=== PATIENT | male | born 1945 | race Caucasian/White ===

== ENCOUNTER 2018-06-15 07:05 | Outpatient (CLI) | payer MEDICARE, OTHER ==
[~2018-06-15] VITALS: Ht 177.8 cm; Wt 98.4 kg
[~2018-06-15 07:05] MED LIST: FINA5TAB6 PO; LISI10TA2 PO; MTF500T PO; PSYL425P3 PO
[2018-06-15] MEDS ORDERED: FINA5TAB6 PO (14:04)
[2018-06-15] MEDS ORDERED: ASPI-586 PO (14:04)
[2018-06-15] MEDS ORDERED: LOSA25TA41 PO (14:04)
[2018-06-15] MEDS ORDERED: PSYL575P4 PO (14:04)
[2018-06-15] MEDS ORDERED: CETI10TA17 PO (14:04)
[2018-06-15] MEDS ORDERED: FLUT9.9S NS (14:04)
[2018-06-15] MEDS ORDERED: TAMS0.4C98 PO (14:04)
[2018-06-15] MEDS ORDERED: METF-397 PO (14:04)
== END 2018-06-15 14:05 | disposition home or self-care (01) ==
LOC: PREOP 07:05
PROVIDERS: ATTEND Internal Medicine
DX: Z01.818 Encounter for other preprocedural examination (principal)

== ENCOUNTER 2018-06-18 07:06 | Day surgery (SDC) | payer MEDICARE, OTHER ==
--- NOTE | 2018-06-15 09:35 | HISTORY AND PHYSICAL ---
DATE OF SERVICE: 06/18/2018 COLONOSCOPY SUMMARY HISTORY OF PRESENT ILLNESS: The patient is a 72-year-old white male whom I last performed a colonoscopy on 5 years ago. At that time, he had 2 tubular adenomas that were removed; one from the proximal transverse colon, the other one from the mid transverse colon. He reports that there have been no significant health changes over the past 5 years. He has moved back to the area and would like to reestablish under my primary care as well. He currently lives in [place]. He is seen to be of higher than average risk as his mother was diagnosed with colon cancer at the age of 49. She survived this and of natural causes at the age of 91. Further family history, father had diverticulitis with obstruction and succumbed to prostate cancer at the age of 74. PAST MEDICAL HISTORY: Significant for long-standing hypertension and benign prostatic hyperplasia as well as recent onset and diagnosed with type 2 diabetes mellitus. He has a history of seasonal allergies. MEDICATIONS ON ADMISSION: Include metformin 500 mg b.i.d., losartan 25 mg daily, finasteride 5 mg daily, tamsulosin 0.4 mg daily, cetirizine 10 mg daily, Flovent nasal spray 2 puffs both sides daily, Metamucil daily and 81 mg aspirin daily. PAST SURGICAL HISTORY: He reports no significant surgeries. SOCIAL HISTORY: He is a retired respiratory therapist with a 15 to 49-cobw-cykq smoking history, but quit 30 years ago. He reports no significant alcohol intake. REVIEW OF SYSTEMS: CONSTITUTIONAL: He has had no weight change, night sweats, chills or fever. CARDIOVASCULAR: He denies chest pain, dyspnea on exertion, palpitations, syncope or presyncope. He has had no orthopnea, PND or pedal edema. PULMONARY: He has had no cough or shortness of breath. GASTROINTESTINAL: Reveals no abdominal pain, bowel habit change, bright red blood per rectum or melena. PHYSICAL EXAMINATION: GENERAL: Reveals a well-appearing white male, appears to be in no acute distress. HEENT: Unremarkable. He is a Mallampati class 3 oropharyngeal configuration. No erythema or exudate is noted. Ear canals are clear with normal TMs. NECK: Revealed no JVD, adenopathy or bruits. CHEST: Clear to auscultation. CARDIOVASCULAR: Reveals a regular rate and rhythm without murmur, S3 or S4. ABDOMEN: Soft, supple without mass, organomegaly or tenderness. RECTAL: Examination was deferred at the time of the procedure. EXTREMITIES: Reveal no cyanosis, clubbing or edema. SKIN: Evaluation revealed no suspicious nevi. ASSESSMENT AND PLAN: 1. Due to the past history of colon polyps and family history for colon cancer, the next case of his mother being diagnosed in her late 40s, he is set up for a surveillance colonoscopy. Prep instructions were given and questions were answered. 2. Hypertension. Under good control. 3. Type 2 diabetes mellitus. He reports it has been under good control with A1c is less than 7. We will have him return for a routine followup in 6 months with a BMP, CBC and A1c. [facility] 1 to 2 months and [facility], which were unremarkable with a glycosylated hemoglobin 6.1%. Job ID: [id number] DocumentID: [id number] Dictated Date: 06/14/2018 16:44:34 Textile Chemist Date: 06/14/2018 17:22:44 Dictated By: ALYCE BLANTON MD
[~2018-06-18] VITALS: Ht 177.8 cm; Wt 98.4 kg
[~2018-06-18 07:06] MED LIST changes: +ASPI-586 PO; +CETI10TA17 PO; +FLUT9.9S NS; +LOSA25TA41 PO; +METF-397 PO; +PSYL575P4 PO; +TAMS0.4C98 PO
--- OUTSIDE RECORDS SUMMARY | 2018-06-18 07:13 | XMS REPORT | Continuity of Care Document ---
Author Organization Unknown Address Unknown Allergies Active Description Code Type Severity Reaction Onset Reported/Identified Relationship to Patient Clinical Status Yes meperidine [id number] Drug Allergy Unknown N/A 08/05/2005 Yes atorvastatin [id number] Drug Allergy Unknown muscle pain 06/15/2018 Yes lisinopril [id number] Drug Allergy Unknown N/A 06/15/2018 Medications There is no data. Problems Date Dx Coded Attending Type Code Diagnosis Diagnosed By 06/15/2018 ALYCE BLANTON MD Ot Z01.818 ENCOUNTER FOR OTHER PREPROCEDURAL EXAMIN 06/16/2018 ALYCE BLANTON MD Ot Z01.818 ENCOUNTER FOR OTHER PREPROCEDURAL EXAMIN 06/16/2018 ALYCE BLANTON MD Ot V72.84 EXAM PRE-OPERATIVE NOS 06/16/2018 ALYCE BLANTON MD Ot 211.3 BENIGN NEOPLASM LG BOWEL 06/16/2018 ALYCE BLANTON MD Ot 455.0 INT HEMORRHOID W/O COMPL 06/16/2018 ALYCE BLANTON MD Ot 562.10 DIVERTICULOSIS COLON (W/O MENT OF HEMORR 06/16/2018 ALYCE BLANTON MD Ot 600.00 HYPERTROPHY (BENIGN) OF PROSTATE W/O URI 06/16/2018 ALYCE BLANTON MD Ot V16.0 FAMILY HX-GI MALIGNANCY 06/16/2018 ALYCE BLANTON MD Ot V76.51 SCREEN MAL NEOP-COLON Procedures There is no data. Results There is no data. Encounters ACCT No. Visit Date/Time Discharge Status Pt. Type Provider Facility Loc./Unit Complaint [id number] 06/15/2018 07:05:00 06/15/2018 14:05:00 DIS Outpatient ALYCE BLANTON MD [facility] PREOP COLONOSCOPY [id number] 06/10/2013 06:44:00 06/10/2013 23:59:59 CLS Outpatient ALYCE BLANTON MD [facility] SDC SCREENING [id number] 06/09/2013 07:36:00 06/09/2013 23:59:59 CLS Outpatient ALYCE BLANTON MD [facility] PREOP SCREENING [id number] 06/18/2018 07:06:00 ACT Outpatient ALYCE BLANTON MD [facility] ENDO HX COLON POLYPS
[2018-06-18] MEDS ORDERED: D5 LR IV SOLUTION 1,000 ML IV ONE (07:14)
[2018-06-18] MEDS ORDERED: D5 LR IV SOLUTION 1,000 ML IV STA (07:23)
[2018-06-18] MEDS ORDERED: LIDOCAINE JELLY 2% 6 ML SYRINGE MM PRN (07:30)
[2018-06-18] MEDS ORDERED: fentaNYL INJECTION 100 MCG/2 ML AMP IVP ONE (07:30)
[2018-06-18] MEDS ORDERED: MIDAZOLAM 2 MG/2 ML (VERSED) VIAL IVP ONE (07:30)
[2018-06-18] MEDS ORDERED: fentaNYL INJECTION 100 MCG/2 ML AMP ONE (07:31)
[2018-06-18] MEDS ORDERED: MIDAZOLAM 2 MG/2 ML (VERSED) VIAL ONE (07:31)
[2018-06-18 07:32] VITALS: BP 146/86
[2018-06-18] MEDS ORDERED: LIDOCAINE JELLY 2% 6 ML SYRINGE ONE (07:32)
[2018-06-18 08:35] VITALS: BP 136/59
--- NOTE | 2018-06-18 09:32 | Pre-Op Note & Conscious Sedat ---
Pre-Operative Progress Note H&P Reviewed The H&P was reviewed, patient examined and no changes noted. Date H&P Reviewed: Jun 18, 2018 Time H&P Reviewed: 07:30 Conscious Sedation Pre-Proced ASA Score 2 For ASA 3 and 4: Consider anesthesia and medical clearance. Also, for patients with a history of failed moderate sedation consider anesthesia. Airway Lungs Heart ASA score ASA 1: a normal healthy patient ASA 2: a patient with a mild systemic disease (mid diabetes, controlled hypertension, obesity ASA 3: a patient with a severe systemic disease that limits activity (angina , COPD, prior Myocardial infarction) ASA 4: a patient with an incapacitating disease that is a constant threat to life (CHF, renal failure) ASA 5: a moribund patient not expected to survive 24 hrs. (ruptured aneurysm) ASA 6: a declared brain- patient whose organs are being harvested. For emergent operations, add the letter E after the classification Mallampati Classification Grade 3 Sedation Plan Analgesia, Amnesia, Plan communicated to team members, Discussed options with patient/fam, Discussed risks with patient/fam The patient is an appropriate candidate to undergo the planned procedure, sedation, and anesthesia. The patient immediately re-assessed prior to indication. ALYCE BLANTON MD Jun 18, 2018 09:32
[2018-06-18] MEDS ORDERED: ASPI-586 PO (09:34)
[2018-06-18 09:35] VITALS: BP 134/66
[2018-06-18 09:50] VITALS: BP 134/66
--- NOTE | 2018-06-18 11:48 | OPERATIVE REPORT ---
DATE OF SERVICE: 06/18/2018 COLONOSCOPY SUMMARY INDICATION FOR THE PROCEDURE: History of colon polyps. Family history for colon cancer in one grandparent. The patient was placed in the left lateral decubitus position. Prior to undergoing colonoscopy, digital rectal evaluation was performed. Anal sphincter tone was normal and the perianal reflex was intact. Prostate is mildly enlarged with no evidence for nodularity with uniform consistency to digital inspection. No tenderness was reported. The colonoscope was then inserted into the rectum under direct visualization and advanced to the cecum. The cecum was identified by identification of the ileocecal valve and cecal strap. Photographic documentation was obtained. Careful inspection was made as the colonoscope was withdrawn. FINDINGS: There was no evidence for internal or external hemorrhoids and the rectum, sigmoid colon, descending colon and splenic flexure were unremarkable. Present in the proximal transverse colon was a diminutive 3 mm sessile polyp. It was photographed and biopsied and ablated with no subsequent blood loss. The hepatic flexure, ascending colon and cecum were unremarkable. ASSESSMENT: One diminutive polyp was removed from the proximal transverse colon via hot forceps with an otherwise normal colonoscopy to the cecum. Considering family history will be abdicating repeat screening colonoscopy in 5 years. Job ID: [id number] DocumentID: [id number] Dictated Date: 06/18/2018 10:21:13 Internet Marketer Date: 06/18/2018 11:48:07 Dictated By: ALYCE BLANTON MD
== END 2018-06-18 09:50 | disposition home or self-care (01) ==
LOC: ENDO 07:06
PROVIDERS: ATTEND Internal Medicine
DX: Z12.11 Encounter for screening for malignant neoplasm of colon (principal); D12.3 Benign neoplasm of transverse colon; Z86.010 Personal history of colon polyps; Z80.0 Family history of malignant neoplasm of digestive organs; N40.0 Benign prostatic hyperplasia without lower urinary tract symptoms; I10 Essential (primary) hypertension; E11.9 Type 2 diabetes mellitus without complications; Z79.82 Long term (current) use of aspirin; Z79.84 Long term (current) use of oral hypoglycemic drugs; Z79.899 Other long term (current) drug therapy

== ENCOUNTER → 2022-01-03 | Outpatient (CLI) | payer MEDICARE, OTHER ==
[~2022-01-03] MED LIST changes: -TAMS0.4C98 PO; +TMSL.4C PO
--- NOTE | 2022-01-03 13:21 | Diagnostic Imaging Report ---
EXAMINATION: CT abdomen and pelvis without contrast. TECHNIQUE: Multiple contiguous axial images were obtained through the abdomen and pelvis without the use of intravenous contrast. All CT scans use one or more of the following dose optimizing techniques: automated exposure control, MA and/or KvP adjustment based on patient size and exam type or iterative reconstruction. HISTORY: CA PROSTATE COMPARISON: None available. FINDINGS: Lung bases: The lung bases are clear. Solid organs: The liver is normal. The gallbladder is normal. There is no biliary ductal dilation. Pancreas is normal. Spleen is normal. Adrenal glands are normal. The kidneys are normal without visualized calculus or hydronephrosis. Bowel: The stomach and small bowel are normal without obstruction. There are a few scattered colonic diverticula. There is a moderate amount of stool within the colon. No findings of acute appendicitis. Peritoneum: There is no intraperitoneal free fluid or free air. No suspicious lymphadenopathy. Vasculature: Calcification of the aorta without aneurysm. Musculoskeletal: Degenerative changes of the spine without suspicious osseous lesion or compression fracture. There are bilateral inguinal hernias containing fat as well as loops of bowel without obstruction. Pelvis: The prostate gland is enlarged. The urinary bladder is normal. IMPRESSION: 1. No findings of metastatic disease within the abdomen or pelvis. Dictated by: Dictated on workstation # [id number]
--- NOTE | 2022-01-03 15:20 | Diagnostic Imaging Report ---
INDICATION: Prostate carcinoma. TECHNIQUE: Patient was administered 20.4 mCi technetium-99m MDP intravenously, and whole-body imaging was performed after a three-hour delay. No prior bone scans are available for comparison. FINDINGS: There is normal uptake of activity by the axial and appendicular skeleton. There is uptake by the kidneys with excretion into the urinary bladder. There appears to be a small focus of uptake involving a right-sided lower rib. This appears to represent the right 11th rib. In viewing CT SPECT scan done same day, there appears to be a healing fracture at this location. No other abnormal uptake is seen. There is degenerative uptake in the bilateral shoulders and knees. IMPRESSION: 1. No scintigraphic evidence of osseous metastatic disease. 2. Healing right-sided 11th rib fracture. Dictated by: Dictated on workstation # [id number]
== END ==
LOC: CARD 12:00
PROVIDERS: ATTEND Urology
DX: C61 Malignant neoplasm of prostate (principal)
CPT/HCPCS: 74176; 78306; A9503